=== PATIENT | female | born 1945 | race Caucasian/White ===

== ENCOUNTER 2018-03-31 20:47 | Emergency (ER) | payer SELFPAY, OTHER | END 2018-03-31 23:48 | disposition left against medical advice (07) | LOC: E/R 20:47 | DX: Z53.21 Procedure and treatment not carried out due to patient leaving prior to being seen by health care provider (principal) ==

== ENCOUNTER 2019-01-12 09:37 | Day surgery (SDC) | payer OTHER ==
[2019-01-12] MEDS ORDERED: SODIUM HYALURONATE 14 MG/ML SYG (10:18)
[2019-01-12] MEDS ORDERED: TOBRAMYCIN/DEXAMETH 3.5 GM OPH OINT (10:18)
[2019-01-12] MEDS ORDERED: EPINEPHrine 1 MG INJ (10:18)
[2019-01-12] MEDS ORDERED: LIDOCAINE 1%/EPI (1:100,000) (MDV) 20 ML (10:18)
[2019-01-12] MEDS: TETRACAINE 0.5% 4 ML OPH LEFT EYE (10:28)
[2019-01-12] MEDS: DICLOFENAC 0.1% 2.5 ML OPH OPER (10:28)
[2019-01-12] MEDS: MOXIFLOXACIN 0.5% 3 ML OPH OPER (10:28)
[2019-01-12] MEDS: TROPICAMIDE 1% 15 ML OPH OPER (10:29)
[2019-01-12] MEDS: PHENYLephrine 10% 5 ML OPH OPER (10:29)
[2019-01-12] MEDS ORDERED: LIDOCAINE 4% (MPF) 5 ML INJ OPER (10:30)
[2019-01-12] MEDS ORDERED: hydrALAzine 20 MG INJ IV (11:00)
[2019-01-12] MEDS ORDERED: DIPHENHYDRAMINE 50 MG INJ IV (11:00)
[2019-01-12] MEDS ORDERED: ACETAMINOPHEN 325 MG TAB PO (11:00)
[2019-01-12] MEDS ORDERED: OXYCODONE/ACETAMINOPHEN (5/325) TAB PO (11:00)
[2019-01-12] MEDS ORDERED: ACETAMINOPHEN 500 MG TAB PO (11:00)
[2019-01-12] MEDS ORDERED: TOBRAMYCIN/DEXAMETH 3.5 GM OPH OINT OPER (11:00)
[2019-01-12] MEDS ORDERED: FENTAnyl 50 MCG/ML VIAL IV (11:00)
[2019-01-12] MEDS ORDERED: ALBUTEROL 0.083% (NEB) 2.5 MG/3 ML AMP HHN (11:00)
[2019-01-12] MEDS ORDERED: LABETALOL HCL 20MG INJ IV (11:00)
[2019-01-12] MEDS ORDERED: ONDANSETRON 4 MG INJ IV (11:00)
[2019-01-12] MEDS: SODIUM HYALURONATE 14 MG/ML SYG IO (11:05)
[2019-01-12] MEDS ORDERED: ETOMIDATE 20 MG INJ (11:17)
[2019-01-12] MEDS ORDERED: LIDOCAINE 2% (SDV) 5 ML INJ (11:17)
[2019-01-12] MEDS ORDERED: SUCCINYLCHOLINE CHLORIDE 100 MG/5 ML SYG IV (11:17)
[2019-01-12] MEDS ORDERED: ROCURONIUM 50 MG INJ (11:17)
[2019-01-12] MEDS ORDERED: FENTAnyl 50 MCG/ML VIAL (11:17)
[2019-01-12] MEDS ORDERED: DESFLURANE 15 MIN (11:17)
[2019-01-12] MEDS ORDERED: MIDAZOLAM 1 MG/ML 2 ML INJ (11:18)
[2019-01-12] MEDS ORDERED: LABETALOL HCL 20MG INJ (11:26)
[2019-01-12] MEDS ORDERED: ONDANSETRON 4 MG INJ (11:27)
[2019-01-12] MEDS ORDERED: SUGAMMADEX SODIUM 200 MG/2 ML VIAL IV (11:50)
[2019-01-12] MEDS ORDERED: FAMOTIDINE 20 MG INJ (11:50)
[2019-01-12] MEDS ORDERED: PHENYLephrine (100 MCG/ML) 10ML SYG (11:54)
[2019-01-12] MEDS: TOBRAMYCIN/DEXAMETH 3.5 GM OPH OINT LEFT EYE (11:57)
[2019-01-12] MEDS: ACETAZOLAMIDE 250 MG TAB PO (14:00)
== END 2019-01-12 16:25 | disposition home or self-care (01) ==
LOC: SDS 09:37
DX: H26.8 Other specified cataract (principal)
CPT/HCPCS: 66984

== ENCOUNTER 2019-02-09 07:24 | Day surgery (SDC) | payer OTHER ==
[~2019-02-09 07:24] MED LIST: DEXAMETHASONE 4 MG/ML 5 ML INJ; LIDOCAINE 2% (SDV) 5 ML INJ; METOCLOPRAMIDE 10 MG INJ; SEVOFLURANE 15 MIN
[2019-02-09] MEDS ORDERED: CARBACHOL 0.01% 1.5 ML OPH INJ (07:43)
[2019-02-09] MEDS ORDERED: DEXAMETHASONE 4 MG/ML 1 ML INJ (07:43)
[2019-02-09] MEDS ORDERED: EPINEPHrine 1 MG INJ (07:43)
[2019-02-09] MEDS: TETRACAINE 0.5% 4 ML OPH (07:49)
[2019-02-09] MEDS ORDERED: MIDAZOLAM 1 MG/ML 2 ML INJ (08:11)
[2019-02-09] MEDS ORDERED: ONDANSETRON 4 MG INJ (08:13)
[2019-02-09] MEDS: TROPICAMIDE 1% 15 ML OPH OPER (08:27)
[2019-02-09] MEDS: PHENYLephrine 10% 5 ML OPH OPER (08:27)
[2019-02-09] MEDS: MOXIFLOXACIN 0.5% 3 ML OPH OPER (08:27)
[2019-02-09] MEDS: DICLOFENAC 0.1% 2.5 ML OPH OPER (08:28)
[2019-02-09] MEDS ORDERED: PROPOFOL 20 ML (08:51)
[2019-02-09] MEDS ORDERED: ONDANSETRON 4 MG INJ IV (09:30)
[2019-02-09] MEDS ORDERED: DIPHENHYDRAMINE 50 MG INJ IV (09:30)
[2019-02-09] MEDS ORDERED: HYDROmorphONE 1 MG/5 ML IV SYRINGE IV (09:30)
[2019-02-09] MEDS ORDERED: KETOROLAC 30 MG INJ IV (09:30)
[2019-02-09] MEDS ORDERED: MIDAZOLAM 1 MG/ML 2 ML INJ IV (09:30)
[2019-02-09] MEDS ORDERED: LORAZEPAM 2 MG INJ IV (09:30)
[2019-02-09] MEDS ORDERED: MEPERIDINE 25 MG INJ IV (09:30)
[2019-02-09] MEDS ORDERED: LEVALBUTEROL (NEB) 1.25 MG/0.5 ML AMP HHN (09:30)
[2019-02-09] MEDS ORDERED: FENTAnyl 50 MCG/ML VIAL IV (09:30)
[2019-02-09] MEDS ORDERED: FENTAnyl 50 MCG/ML VIAL (10:37)
[2019-02-09] MEDS: FENTAnyl 50 MCG/ML VIAL IV (10:43)
== END 2019-02-09 11:28 | disposition home or self-care (01) ==
LOC: SDS 07:24
DX: H25.11 Age-related nuclear cataract, right eye (principal); K21.9 Gastro-esophageal reflux disease without esophagitis; F41.8 Other specified anxiety disorders
CPT/HCPCS: 66984